=== PATIENT | female | born 1990 | race Caucasian/White ===

== ENCOUNTER → 2018-09-18 11:30 | Outpatient (CLI) | payer OTHER, SELFPAY ==
[2018-09-18 11:38] VITALS: BMI 24.5
[2018-09-26 12:00] LABS: HPV APTIMA, High Risk Positive (Negative)
[2018-09-26 12:07] LABS: HPV Reflexed? YES, CHARGE PATIENT
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
== END ==
PROVIDERS: Referring Provider Nurse Practitioner Women's Health; Visit Provider Nurse Practitioner Women's Health
DX: Z12.4 Encounter for screening for malignant neoplasm of cervix (principal)
CPT/HCPCS: 87624; 88175; G0145

== ENCOUNTER → 2018-10-30 14:03 | Outpatient (CLI) | payer OTHER, SELFPAY ==
[2018-10-19 15:49] VITALS: BMI 25.0
[2018-10-30 15:25] LABS: Estradiol 43.2 pg/mL; Follicle Stimulating Hormone 8.6 mIU/mL; Prolactin 7.2 ng/mL; Thyroid Stim Hormone (TSH) 1.97 uIU/mL (0.358-3.74)
--- OUTSIDE RECORDS SUMMARY | 2019-01-01 19:31 | XMS RPT_ITS ---
:1990 Author Organization OHIP Support Name Relationship Address Phone ASHUNI Unavailable [address] + [place] [address] WHEELAND, IDANIA Unavailable [address] + [place] [address] ASHUNI Unavailable [address] + [place] [address] WHEELAND, IDANIA Unavailable [address] + [address] [place] [address] HEFFELMAN, HEATHER Unavailable Unavailable Unavailable HEFFELMAN, HEATHER Unavailable Unavailable Unavailable WHEELAND, IDANIA Unavailable Unavailable Unavailable WHEELAND, IDANIA Unavailable Unavailable Unavailable ASHUNI Unavailable [address] + [place] [address] WHEELAND, IDANIA Unavailable [address] + [address] [place] [address] [facility] Unavailable Unavailable + [place] [address] [facility] Unavailable Unavailable + [place] [address] WHEELAND, IDANIA Unavailable [address] + [address] [place] [address] HEFFELMAN, HEATHER Unavailable Unavailable Unavailable HEFFELMAN, HEATHER [...] Unavailable DOCTOR, OUT OF TOWN Referring Unavailable [place], Skyler Attending Unavailable Valentina, Skyler Referring Unavailable Marcanthony, Lis Attending Unavailable Marcanthony, Lis Attending Unavailable Marcanthony, Lis Referring Unavailable MAGALY DARBY Primary Care Unavailable PROBLEMS PROBLEMS DATE TYPE CONDITION / CODE ATTENDING STATUS SOURCE 10/19/2018 Unknown K50.90 - Crohn's Marcanthony, Active [place] disease, [facility] unspecified, Hospital without Repository complications / K50.90(ICD-10) 10/19/2018 Unknown N92.6 - Irregular Marcanthony, Active [place] menstruation, [facility] unspecified / Hospital N92.6(ICD-10) Repository 09/19/2018 Unknown Z12.4 - Encounter Skyler Montgomery Active [place] for screening for [facility] malignant neoplasm Hospital of cervix / Repository Z12.4(ICD-10) 05/01/2018 Admitting Unspecified FRANCIA FRAZIER Active [facility] diagnosis fracture of lower ORCHANIAN Three end of right Repository humerus, subsequent encounter for fracture with routine healing / S42.401D(ICD-10) 04/23/2018 Admitting Unknown / TONY NICOLAS Active [facility] diagnosis UNK(Unknown) ERIC Three Repository PROCEDURES PROCEDURES No Procedure Records FoundRESULTS RESULTS THYROID STIM HORMONE Collected: 10/30/2018 Status: F Source: ANGELICA (TSH) 2:11 PM [facility] REPOSITORY Order Comment: PER PATIENT, SHE IS ON CYCLE DAY THREE;DR VANCE WANTED PATIENT ON DAY THREE OF CYCLE. TYPE CODE TESTS RESULT OUT OF RANGE REFERENCE UNITS LAB L501.9520 0.358-3.74 uIU/mL Normal TSH 1.97 Performed By: #### L501.9520, L3100.5125, L3100.5420, L3300.1750 #### Angelica [facility] [address] [place], [place], [address] FOLLICLE STIMULATING Collected: 10/30/2018 Status: F Source: ANGELICA HORMONE 2:11 PM [facility] REPOSITORY Order Comment: PER PATIENT, SHE IS [...] By: #### L501.9520, L3100.5125, L3100.5420, L3300.1750 #### [facility] [address] [place], [place], [address] PROLACTIN Collected: 10/30/2018 Status: F Source: ANGELICA 2:11 PM [facility] REPOSITORY Order Comment: PER PATIENT, SHE IS [...] By: #### L501.9520, L3100.5125, L3100.5420, L3300.1750 #### [facility] Laboratory [address] [place], [address] ESTRADIOL Collected: 10/30/2018 Status: F Source: ANGELICA 2:11 PM [facility] REPOSITORY Order Comment: PER PATIENT, SHE IS [...] By: #### L501.9520, L3100.5125, L3100.5420, L3300.1750 #### [facility] Laboratory [address] [place], [address] INSPECTOR WIRE ROPE OFFICE VISIT Observed: 10/19/2018 Status: F Source: [place] REPORT 4:34 PM [facility] REPOSITORY [facility] Women's [facility] [address] [place] [address] OFFICE VISIT Date of Service: 10/19/18 MR#: [id number] Acct: [id number] Name: SELENE OLSON Rep #: [id number] : 1990 Provider: Lis Vance MD Age/Sex: 28/F Location: 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 [place] [address] OFFICE VISIT Date of Service: 09/18/18 MR#: [id number] Acct: [id number] Name: JHONY OLSONTyler Castaneda Rep #: [id number] : 1990 Provider: MERRY Montgomery Age/Sex: 28/F Location: [facility] Status: Signed Intake Vital Signs12/11/18 Height 5 ft 4 in 09/18/18 Weight: 143 lb 09/18/18 Body Mass Index (BMI) 24.5 09/18/18 Blood Pressure 116/78 Intake Visit Reasons: NEW annual, hx abnormal pap Chief Complaint: NEW annual Loss Prevention Lead Required: No Is patient in pain?: No Allergies No Known Allergies Allergy (Unverified 09/18/18 11:38) Medications adalimumab 10 mg/0.1 mL subcutaneous syringe kit 40 mg SC Q2W 09/18/18 [History Confirmed 09/18/18] multivitamin,ub-zzjn-fajhbtst tablet 1 tab PO DAILY 09/18/18 [History [...] at home: Yes additional social history: 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 Prior exams in [place], [place]. Originally from [place]. Last PAP: 2 yr ago History of abnormal PAP: Neg colp 2015, pap negative since Told had Radha as child but negative repeat testing with engine cleaner in 2014([place].) Will get records No contraception-would like but [...] alert, oriented to person, oriented to place [facility] Head: normal to inspection Neck Neck: normal [...] reflex HPV Taking PNV Records release for engine cleaner OPT X 2 cycles RTO 8 weeks Skyler Montgomery MANAGER REIMBURSEMENT Orders Orders: Coding Level of Care Code [...] Status: F Source: ANGELICA HRHPV-APTIMA 11:30 AM [facility] REPOSITORY Order Comment: CYTOLOGY INFORMATION: - CLINICAL INFORMATION: ANNUAL - DATE LMP/MENOPAUSE: N/A - COLLECTION VIAL: Thin Prep Vial - PIT CLERK SOURCE: CERVICAL - COLLECTION TECHNIQUE: BRUSH/SPATULA Specimen Comment: [id number] Specimen Comment: Source.............Cervix Specimen Comment: No. of [...] Normal PERFORM Comment Result Comment: Gerard Willis, Food Order Expediter (ASCP) LAB L7400.1700 . Normal SIGN Comment [...] without differentiation. Performed at: NMSIN - [facility] [place] [id number] [place] [address], [facility] [place] [id number] Floorworker Distributor: Zuleyma Caballero MD, Phone: [phone] Performed at: WB - [facility] [address], [place] [id number] Floorworker Distributor: Mia Barragan MD, Phone: [phone] Performed at: =G - [facility] [address], [place] [id number] Floorworker Distributor: Mia Barragan MD, Phone: [phone] Performed By: #### L7400.0353 #### [facility] (refer to report for specific site) refer to report for address and phone number ELBOW Observed: 04/19/2018 Status: F Source: [facility] 9:59 PM [facility] REPOSITORY Final Report Accession No: [id number] Performed: Apr 19 2018 9:59PM Examination: [...] SEVERITY SOURCE 10/19/[address] [facility] Allergy/416 Allergies/G44731 Hospital 903471(SNOM 0388(RXNORM) Repository ED CT) Drug NO KNOWN [facility] Three Class/90710 ALLERGIES Repository 1003(SNOMED CT) ENCOUNTERS ENCOUNTERS ADMIT/DISCHARGE ACCOUNT NUMBER ADMITTING ENCOUNTER LOCATION SOURCE CLASS 10/30/2018 [id number] Ambulatory [facility] ding:LAB Repository 10/19/2018/10/19/19 [id number] Ambulatory BMSBuilding: [place] 19 [facility] Repository 09/20/2018 [id number] Ambulatory Building:[facility] Three Repository 09/18/2018 [id number] [facility] ding:[facility] Repository 09/18/2018/09/18/20 [id number] Ambulatory BMSBuilding: Angelica 18 BMS.[facility] Repository 05/01/2018/05/01/20 [id number] Ambulatory Building[facility] [place] [address] [facility] ICKT Repository 04/27/2018 [id number] [facility] Three ICKT Repository 04/23/2018/04/23/20 [id number] Ambulatory Building:[place] [address] ORTHOMORRISR Three D Repository 04/19/2018/04/19/[id number] [facility] [place] [address] Yuri L lding:[address] and [facility] DeptRoom: [place] [id number] I4ASSpp: Repository A1E A1ED17 PAYERS PAYERS ENCOUNTER GUARANTOR PAYER SUBSCRIBER SOURCE 10/30/2018 SELENE Castaneda Primary ESLENE Dominguez [id number] Insurance:MEDICAL HEFFELMANDOB: [facility] 3834-[place] Number: Repository [address]Ryf: [phone] [id number] [phone] (HP) Date:9183-16-14ID[address] [address]YO: 10/30/2018 Secondary NOT GIVENUNK [place] Insurance:SELF PAY [facility] Number: Effective Repository Date:2018-10-30 10/19/2018 SELENE Castaneda Primary SELENE Gooster [id number] Insurance:MEDICAL HEFFELMANDOB: [facility] [id number] Number: Repository [id number]: [phone]) [id number] [phone] (HP) Date:4070-23-99ZQ[address] [address]TA: 10/19/2018 Secondary NOT GIVENUNK [place] Insurance:SELF PAY [facility] Number: Effective Repository Date:2018-10-19 09/20/2018 SELENE R Primary SELENE R [facility] HEFFELMANDOB: [facility] Three Repository Number: [id number] AVI [id number] 7 [facility], Date:2014-06-09 - [place], [place] [address]Vmw: 2840-01-86NO [address] [address] [place] [address] () [address]DN: 09/20/2018 Secondary SELENE Castaneda [facility] Insurance:OPTIMAPol HEFFELMANDOB: Three Repository y Number: [id number] AVI Date:9843-52-34IZ [address] [place] [address]Swy: [address]NM: [phone] () 09/18/2018 SELENE R Primary SELENE R Angelica [id number] Insurance:MEDICAL HEFFELMANDOB: [facility] 9258-84-[place] Number: Repository [id number]: [phone]) [id number] [phone] () Date:1272-23-81FR [address] [place] [address]XV: 09/18/2018 Secondary NOT GIVENUNK Angelica Insurance:SELF PAY [facility] Number: Effective Repository Date:2018-09-18 09/18/2018 SELENE R Primary SELENE R [place] [id number] Insurance:MEDICAL HEFFELMANDOB: [facility] [id number] Number: Repository [id number]: [phone]) [id number] [phone] () Date:8870-27-71EF [facility] [address] [place] [address]GS: 09/18/2018 Secondary NOT GIVENUNK [place] Insurance:SELF PAY [facility] Number: Effective Repository Date:2018-09-18 05/01/2018 SELENE R Primary [facility]ELENE R [facility]: Insurance:OPTIMAPolic HEFFELMANDOB: Three Repository y Number: [id number] AVI [id number] AVI [facility], Date:6264-31-13IN [place], [place] [address]Ozr: [address] [place] [address]Txy: [phone]: [phone] (WP) 05/01/2018 Secondary [facility] Insurance:OPTIMAPolic HEFFELMANDOB: Three Repository y Number: [id number] AVI Date:3802-64-59UB [address] [address]Cps: [phone]: [phone] (WP) 04/27/2018 SELENE R Primary SELENE R [facility]: Insurance:[facility]OB: Three Repository Number: [id number] AVI [id number] [address] [place] [address], Date:2014-06-09 - [facility] [address]Rka: 9499-41-99PH [place] [id number] [place] [address] () [address]VN: 04/27/2018 Secondary [facility] Insurance:OPTIMAPolic HEFFELMANDOB: Three Repository y Number: [id number] AVI Date:9355-82-44FU[address] [address]Uxd: [address]GS: [phone] (WP) 04/23/2018 SELENE R Primary [facility] HEFFELMANDOB: Insurance:OPTIMAPolic HEFFEANDOB: Three Repository y Number: [id number] AVI [id number] AVI [facility], Date:8172-52-[place], [place] [address]Mma: [facility] [address]Fhj: [address]WP: [phone] (WP) 04/23/2018 Secondary [facility] Insurance:[facility]olFostoria City HospitalANDOB: Three Repository y Number: [id number] AVI Date:7152-05-71[facility], [facility] [address]Wxv: [address]IU: [phone] (WP) 04/19/2018 Primary [facility] Insurance:[place] HEFFELMANDOB: [facility] Number: [id number] [facility] [id number] AVI Repository Date:[place], [place] Name:[facility] Yusra [address]Gwy: [phone], [place] [phone] () [id number]:
--- OUTSIDE RECORDS SUMMARY | 2019-01-01 19:31 | XMS RPT_ITS | Summary of Care ---
:1990 Author Organization [facility] Address [address] [place] [address] Care Team Providers Name Role Phone Estrella Downeynidhi VAZQUEZ Primary Care Provider Adilene Myers RN [place] Glycerin Supervisor Unavailable Reason for Visit Reason Comments Chronic Care Management Encounter Details Date Type Department Care Team Description 10/18/2018 Patient Outreach [facility] Group Adilene Myers Chronic Care [address] [facility] Alanna, TUSHAR Management [address] [place] [address] Allergies No Known Allergiesas of this encounter Medications Prescription Sig. Disp. Refills Start Date End Date Status linaclotide (LINZESS) Take 290 mcg by mouth Active 290 mcg capIndications: every morning chronic idiopathic Reasons: Chronic constipation Idiopathic Constipation. adalimumab (HUMIRA) 40 Inject 40 mg under Active mg/0.8 mL the skin every 14 syringeIndications: (fourteen) days Crohn's Disease Reasons: Crohn's Disease. carica papaya (PAPAYA Chew and Swallow 3 Active ENZYME) (three) times a day ChewIndications: with meals Reasons: DIGESTION DIGESTION. as of this encounter Active Problems Problem Noted Date Occult closed fracture of right elbow 05/01/2018 Contusion of right elbow 04/23/2018 Last Assessment & Plan: This time start range of motion exercises for your elbow I will see back in 2 weeks if you are not better I will MRI your elbow. Constipation 12/16/2016 Overview: [id number] IMO 2018 R1 Update Anal spasm 12/16/2016 ASCUS with positive high risk HPV cervical 09/01/2016 Overview: Non 16, 18, but HPV + Low grade squamous intraepithelial lesion (LGSIL) on Papanicolaou smear of 01/22/2016 cervix Bright red blood per rectum 07/15/2015 Last Assessment & Plan: New onset, likely due to active Crohn's. Colonoscopy on 07/16/15. Abdominal cramping 07/15/2015 Last Assessment & Plan: Epigastric and LLQ of acute onset. LLQ abdominal pain is likely due to active Crohn's disease. She would like evaluation for PUD, reflux esophagitis, upper GI involvement of Crohn's so will proceed with EGD and colonoscopy tmrw. 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 Will proceed with colonoscopy tomorrow to determine extent and severity of her disease so that I can determine what therapy she needs. IV steroids. She will follow up with me in the office after discharge. Social History Tobacco Use Types Packs/Day Years Used Date Never Smoker Smokeless Tobacco: Never Used Alcohol Use Drinks/Week oz/Week Comments No Sex Assigned at Date Recorded Not on file as of this encounter Plan of Treatment Health Maintenance Due Date Last Done Comments TETANUS EVERY 10 YR 1990 SEQUENTIAL INFLUENZA VACCINE (#1) 2018 PAP SMEAR 08/04/2019 08/04/2016, 01/19/2016 as of this encounter
== END ==
PROVIDERS: Referring Provider Obstetrics & Gynecology; Visit Provider Obstetrics & Gynecology
DX: N94.6 Dysmenorrhea, unspecified (principal); N97.9 Female infertility, unspecified
CPT/HCPCS: 36415; 82670; 83001; 84146; 84443

== ENCOUNTER → 2018-11-19 16:00 | Outpatient (CLI) | payer OTHER, SELFPAY ==
[2018-11-14 14:45] VITALS: BMI 25.0
[2018-11-19 16:54] LABS: Progesterone Level 3.07 ng/mL (See Comment)
== END ==
PROVIDERS: Referring Provider Nurse Practitioner Women's Health; Visit Provider Nurse Practitioner Women's Health
DX: N97.0 Female infertility associated with anovulation (principal)
CPT/HCPCS: 36415; 84144

== ENCOUNTER → 2018-12-03 12:09 | Outpatient (CLI) | payer OTHER, SELFPAY ==
[2018-11-14 14:45] VITALS: BMI 25.0
--- NOTE | 2018-12-03 12:10 | RAD_ITS ---
STUDY: HYSTEROSALPINGOGRAM. REASON FOR EXAM: Female, 28 years old. Infertility. FLUOROSCOPY TIME (if supplied): (0:50) minutes/seconds. 3 spot images were obtained. TECHNIQUE: A hysterosalpingogram was performed by the high school science teacher. Imaging was provided. COMPARISON: None. FINDINGS: The uterus is unremarkable. There is patency of the left fallopian tube with spill. The right fallopian tube is not visualized. RAD/Salpingogram IMPRESSION: Unremarkable uterus. Patency of the left fallopian tube with spill. Electronically Signed: Kwame Berry, at 8:56 EST , Service support ,
--- NOTE | 2018-12-04 17:17 | OP.PCM_ITS ---
Problem List (1) Dysmenorrhea Status: Acute (2) Infertility Status: Acute Comment: fsh prolactin tsh estradiol, hsg, semen analysis Report of Operation Date of Procedure: 12/03/18 Description of Surgical Findings:: Preop diagnosis: Infertility Postop diagnosis: Same plus left sided tubal patency Procedure: Hysterosalpingogram Surgeon: Lis Allison Implantable devices: None Complications: None Findings: Bilateral tubal patency and normal uterine cavity Operative details: Patient was taken to the x-ray room and was placed on the x- ray table and was in the dorsal lithotomy position. Speculum was placed in the vagina and the cervix prepped with Betadine and the HSG catheter was easily introduced into the uterus and speculum removed. Radiologist was brought in and while pushing radiopaque dye into the uterus via the HSG catheter the radiologist took multiple images and views and confirmed only left tubal patency seen. No gross uterine filling defects or abnormalities were seen. All instruments removed from the vagina and the uterus without complication. Patient tolerated the procedure well.
== END ==
PROVIDERS: Referring Provider Obstetrics & Gynecology; Visit Provider Obstetrics & Gynecology
DX: N92.6 Irregular menstruation, unspecified (principal)
CPT/HCPCS: 58340; 74740; Q9967

== ENCOUNTER → 2019-09-26 13:10 | Outpatient (CLI) | payer OTHER, SELFPAY ==
[2019-09-26 09:56] VITALS: BMI 25.0
[2019-09-30 12:51] LABS: HPV Reflexed? NOT INDICATED
== END ==
PROVIDERS: Referring Provider Nurse Practitioner Women's Health; Visit Provider Nurse Practitioner Women's Health
DX: Z12.4 Encounter for screening for malignant neoplasm of cervix (principal); N94.6 Dysmenorrhea, unspecified
CPT/HCPCS: 88175; G0145

== ENCOUNTER → 2019-11-11 16:03 | Outpatient (CLI) | payer OTHER, SELFPAY ==
[2019-09-26 09:56] VITALS: BMI 25.0
[2019-11-11 17:54] LABS: Progesterone Level 21.83 ng/mL (See Comment)
== END ==
PROVIDERS: Referring Provider Nurse Practitioner Women's Health; Visit Provider Nurse Practitioner Women's Health
DX: N97.0 Female infertility associated with anovulation (principal)
CPT/HCPCS: 36415; 84144